=== PATIENT | female | born 1985 | race Caucasian/White ===

== ENCOUNTER 2016-08-25 06:33 | Emergency (ER) | payer MEDICAID ==
[~2016-08-25 06:33] MED LIST: ALD50 PO; METOPROLOL TART25 M1 PO; ZESTRIL20 MG PO
[2016-08-25 07:07] VITALS: BP 134/87
== END 2016-08-25 07:07 | disposition home or self-care (01) ==
LOC: ED 06:33
DX: J02.8 Acute pharyngitis due to other specified organisms (principal)

== ENCOUNTER 2016-10-17 16:55 | Emergency (ER) | payer MEDICAID ==
[2016-10-17 18:40] VITALS: BP 131/79
== END 2016-10-17 18:40 | disposition home or self-care (01) ==
LOC: ED 16:55
DX: B00.1 Herpesviral vesicular dermatitis (principal); J02.9 Acute pharyngitis, unspecified; L01.00 Impetigo, unspecified

== ENCOUNTER 2019-01-19 12:58 | Emergency (ER) | payer MEDICAID ==
[~2019-01-19] VITALS: Ht 160 cm; Wt 95.7 kg
[2019-01-19 13:15] VITALS: Ht 160 cm; Wt 95.7 kg
[2019-01-19 15:19] VITALS: BP 141/87
== END 2019-01-19 15:19 | disposition home or self-care (01) ==
LOC: ED 12:58
DX: J01.90 Acute sinusitis, unspecified (principal); R03.0 Elevated blood-pressure reading, without diagnosis of hypertension; Z98.51 Tubal ligation status